=== PATIENT | male | born 1965 | race Two or more races ===

== ENCOUNTER → 2024-12-06 | Outpatient (CLI) | payer MEDICAID, SELFPAY ==
--- NOTE | 2024-12-06 07:00 | EKG_ITS ---
[facility] Test Date: 2024-12-06 Pat Name: FRANCISCO GARCES Department: Room: - Gender: Male Trauma Director: RTBALBIR : 1965 Requested By: Benedicto Hernandez Order Number: [id number] Reading MD: Benedicto Hernandez Measurements Intervals [place] Rate: 67 P: 17 TX: 185 QRS: 34 QRSD: 94 T: 29 QT: 395 QTc: 419 Interpretive Statements SINUS RHYTHM WITH SINUS ARRHYTHMIA NONSPECIFIC T-WAVE ABNORMALITY No previous ECG available for comparison /[id number].pdf
[2024-12-06 08:22] VITALS: BMI 32.8
[2024-12-06 08:57] LABS: Collection Type, Urine Clean Catch
[2024-12-06 10:50] LABS: Basophils # (Auto) 0.0 Thou/mm3 (0.0-0.2); Basophils % (Auto) 1 % (0-2.5); Eosinophils # (Auto) 0.1 Thou/mm3 (0.0-0.5); Eosinophils % (Auto) 1 % (0-10); Hematocrit 42.2 % (41.0-53.0); Hemoglobin 14.8 g/dL (13.5-16.0); Immature Granulocytes Auto 0.01 Thou/mm3 (0.00-0.00); Lymphocytes # (Auto) 2.0 Thou/mm3 (1.0-4.8); Lymphocytes % (Auto) 39 % (10-50); Mean Corpuscular HGB Conc 35.1 g/dl (31.0-37.0); Mean Corpuscular Hemoglobin 30.8 pg (25.0-35.0); Mean Corpuscular Volume 88 fL (80-100); Monocytes # (Auto) 0.5 Thou/mm3 (0.0-0.8); Monocytes % (Auto) 9 % (0-12); Neutrophils # (Auto) 2.5 Thou/mm3 (1.8-7.7); Neutrophils % (Auto) 49 % (37-80); Nucleated Red Blood Cell # 0.00 Thou/mm3 (0.00-0.00); Nucleated Red Blood Cell % 0 /100 WBC (0); Platelet Count 111 Thou/mm3 (140-440); RDW Standard Deviation 45.6 fL (35.1-43.9); Red Blood Count 4.80 Miln/mm3 (4.50-5.90); White Blood Count 5.1 Thou/mm3 (3.8-10.6)
[2024-12-06 10:57] LABS: Bilirubin,Urine Negative (Negative); Blood,Urine Negative (Negative); Clarity,Urine Clear (Clear/Hazy); Color,Urine Yellow (Lt Yel-Yel); Glucose, Urine 1+ (Negative); Ketones,Urine Trace (Negative); Leukocyte Esterase,Urine Negative (Negative); Nitrite,Urine Negative (Negative); PH,Urine 6.0 (5.0-7.0); Protein,Urine Trace (Neg - Trace); RBC,Urine 4 /hpf (0-3); Specific Gravity,Urine 1.028 (1.001-1.035); Squamous Epithelial Cell,Urine 1 /hpf (0-5); Urobilinogen,Urine Negative mg/dL (0.0-1.0); WBC,Urine 4 /hpf (0-5)
[2024-12-06 11:06] LABS: Alanine Aminotransferase 43 U/L (10-49); Albumin, Serum 4.2 gm/dL (3.5-5.0); Albumin/Globulin Ratio 1.7 (1.2-2.2); Alkaline Phosphatase 104 U/L (46-116); Anion Gap 10 (7-16); Aspartate Amino Transferase 67 U/L (0-34); BUN/Creatinine Ratio 10 Ratio (12-20); Bilirubin,Total 0.9 mg/dL (0.3-1.2); Blood Urea Nitrogen 7 mg/dL (9-23); Calcium 8.7 mg/dL (8.3-10.6); Calcium (Corrected) 8.7 mg/dL (8.5-10.1); Carbon Dioxide 27.1 mMol/L (20.0-31.0); Chloride 104 mMol/L (98-107); Creatinine (Component) 0.7 mg/dL (0.6-1.3); Estimated Creatinine Clearance 132.1 mL/min (>60); Globulin 2.5 gm/dL (2.3-3.5); Glucose 145 mg/dL (74-106); Osmolality,Calculated 282 (275-295); Potassium 3.8 mMol/L (3.4-5.1); Sodium 141 mMol/L (136-145); Total Protein 6.7 gm/dL (5.7-8.2); eGFR > 60 See Note
--- NOTE | 2024-12-06 14:27 | SUR.PREOP ---
Pt notified to come in at 0630 tomorrow.
--- NOTE | 2024-12-07 08:45 | ESHP_ITS ---
RE: FRANCISCO BROOKS : 1965 DATE OF ADMISSION: 12/06/2024 The patient is a 59-year-old gentleman Croatian speaking. He has phimosis. He is scheduled to have circumcision. He has pain in the penis. He has been able to urinate well. Previous surgery is none. He has 4 children. Allergies none known. He has history of diabetes mellitus and history of hypertension. He takes high blood pressure pills and statin medications. Clinical examination reveals HEENT normal. Neck supple. Lungs are clear. Heart sounds are normal. Abdomen is soft without any organomegaly. No guarding. No rigidity. Extremities are normal. Phallus reveals tight phimosis. Plan is circumcision. Planned procedure, risks, and complications have been discussed with the patient. The patient has understood them and agreed to proceed. DT: 15:21:33 TT: 15:57:00 Ref: [id number] - TID: [id number]
== END | disposition home or self-care (01) ==
LOC: SLAB 12-07 11:29
PROVIDERS: Anesthesiology; Referring Provider Surgery; Visit Provider Surgery
DX: Z01.812 Encounter for preprocedural laboratory examination (principal); N47.1 Phimosis; Z01.810 Encounter for preprocedural cardiovascular examination
CPT/HCPCS: 36415; 80053; 81001; 85025; 93005